=== PATIENT | female | born 1975 | race African-American/Black ===

== ENCOUNTER 2019-05-13 23:44 | Emergency (ER) | payer OTHER ==
[~2019-05-13] VITALS: Ht 175.3 cm; Wt 111.1 kg
[2019-05-13] MEDS ORDERED: fentaNYL PF VIAL 100 MCG/2 ML VIAL ONE (23:59)
[2019-05-14] MEDS ORDERED: IV NORMAL SALINE 1000ML BAG 1,000 ML IV SCH
[2019-05-14 00:08] LABS: BASO % 0 % (0-3); EOS # 0.2 x10^3/uL (0.0-0.7); EOS % 2 % (0-3); HEMATOCRIT 43.5 % (36.0-47.0); LYMPH # 3.8 x10^3/uL (1.0-4.8); LYMPH % 31 % (24-48); MEAN CORPUSCULAR HEMOGLOBIN 31 pg (25-35); MEAN CORPUSCULAR HGB CONC 35 g/dL (31-37); MEAN CORPUSCULAR VOLUME 90 fL (79-100); MONO # 0.7 x10^3/uL (0.0-1.1); MONO % 6 % (0-9); NEUT # 7.4 x10^3/uL (1.8-7.7); NEUT % 61 % (31-73); PLATELET COUNT 422 x10^3/uL (140-400); RED BLOOD COUNT 4.83 x10^6/uL (3.50-5.40); RED CELL DISTRIBUTION WIDTH 13.3 % (11.5-14.5); WHITE BLOOD COUNT 12.2 x10^3/uL (4.0-11.0)
[2019-05-14] MEDS ORDERED: ADENOSINE 6 MG/2 ML VIAL. IV ONE ×2 (00:15→02:00)
--- NOTE | 2019-05-14 00:23 | PHYS DOC ---
Past Medical History Past Medical History: Diabetes-Type II Adult General Chief Complaint Chief Complaint: RAPID HEART RATE HPI HPI Patient is a 43 year old female who presents with complaining of palpitation and chest tightness. 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 Patient denies recent dehydration, focal neuro deficit, nausea and vomiting, . Review of Systems Review of Systems Constitutional: Denies fever or chills [] Eyes: Denies change in visual acuity, redness, or eye pain [] HENT: Denies nasal congestion or sore throat [] Respiratory: Denies cough or shortness of breath [] Cardiovascular: No additional information not addressed in HPI [] GI: Denies abdominal pain, nausea, vomiting, bloody stools or diarrhea [] : Denies dysuria or hematuria [] Musculoskeletal: Denies back pain or joint pain [] Integument: Denies rash or skin lesions [] Neurologic: Denies headache, focal weakness or sensory changes [] Endocrine: Denies polyuria or polydipsia [] All other systems were reviewed and found to be within normal limits, except as documented in this note. Current Medications Current Medications Current Medications Medications (Trade) Dose Ordered Sig/Shila Start Time Stop Time Status Last Admin Dose Admin Adenosine (Adenocard) 12 mg 1X ONCE 05/14/19 02:00 05/14/19 02:02 DC 05/14/19 01:59 12 MG Fentanyl Citrate (Fentanyl 2ml Vial) 50 mcg 1X ONCE 05/14/19 02:00 05/14/19 02:01 DC 05/14/19 01:59 50 MCG Sodium Chloride 1,000 ml @ 100 mls/hr Q10H 05/14/19 00:00 05/14/19 09:59 05/14/19 00:27 100 MLS/HR Allergies Allergies Allergies Coded Allergies Type Severity Reaction Last Updated Verified Sulfa (Sulfonamide Antibiotics) Allergy Unknown 05/14/19 Yes Physical Exam Physical Exam Constitutional: Well developed, well nourished, mild distress, non-toxic bethanie earance. [] HENT: Normocephalic, atraumatic. Eyes: PERRLA, EOMI, conjunctiva normal, no discharge. [] Neck: Normal range of motion, no tenderness, supple, no stridor. [] Cardiovascular: Tachycardia, no murmur [] Lungs & Thorax: Bilateral breath sounds clear to auscultation [] Abdomen: Bowel sounds normal, soft, no tenderness, no masses, no pulsatile masses. [] Skin: Warm, dry, no erythema, no rash. [] Back: No tenderness, no CVA tenderness. [] Extremities: No tenderness, no cyanosis, no clubbing, ROM intact, no edema. [] Neurologic: Alert and oriented X 3, no focal deficits noted. [] Psychologic: Affect normal, judgement normal, mood normal. [] Current Patient Data Vital Signs Vital Signs Date Time Temp Pulse Resp B/P (MAP) Pulse Ox O2 Delivery O2 Flow Rate FiO2 05/14/19 01:59 24 99 Nasal Cannula 2.0 05/14/19 01:30 86 137/81 (99) 05/13/19 23:47 98.3 98.3 Lab Values Laboratory Tests Test 05/13/19 23:55 05/14/19 00:18 White Blood Count 12.2 x10^3/uL (4.0-11.0) H Red Blood Count 4.83 x10^6/uL (3.50-5.40) Hemoglobin 15.0 g/dL (12.0-15.5) Hematocrit 43.5 % (36.0-47.0) Mean Corpuscular Volume 90 fL (79-100) Mean Corpuscular Hemoglobin 31 pg (25-35) Mean Corpuscular Hemoglobin Concent 35 g/dL (31-37) Red Cell Distribution Width 13.3 % (11.5-14.5) Platelet Count 422 x10^3/uL (140-400) H Neutrophils (%) (Auto) 61 % (31-73) Lymphocytes (%) (Auto) 31 % (24-48) Monocytes (%) (Auto) 6 % (0-9) Eosinophils (%) (Auto) 2 % (0-3) Basophils (%) (Auto) 0 % (0-3) Neutrophils # (Auto) 7.4 x10^3/uL (1.8-7.7) Lymphocytes # (Auto) 3.8 x10^3/uL (1.0-4.8) Monocytes # (Auto) 0.7 x10^3/uL (0.0-1.1) Eosinophils # (Auto) 0.2 x10^3/uL (0.0-0.7) Basophils # (Auto) 0.0 x10^3/uL (0.0-0.2) Sodium Level 140 mmol/L (136-145) Potassium Level 3.6 mmol/L (3.5-5.1) Chloride Level 105 mmol/L (98-107) Carbon Dioxide Level 23 mmol/L (21-32) Anion Gap 12 (6-14) Blood Urea Nitrogen 11 mg/dL (7-20) Creatinine 0.9 mg/dL (0.6-1.0) Estimated GFR (Cockcroft-Gault) 81.9 Glucose Level 212 mg/dL (70-99) H Calcium Level 8.7 mg/dL (8.5-10.1) Troponin I Quantitative < 0.017 ng/mL (0.000-0.055) Laboratory Tests 05/13/19 23:55 Laboratory Tests 05/14/19 00:18 EKG EKG EKG interpreted by me. EKG at 2351 showed SVT with rate of 175, repolarization abnormality, no acute ST and T-wave abnormalities. Radiology/Procedures Radiology/Procedures [] Course & Med Decision Making Course & Med Decision Making Pertinent Labs and Imaging studies reviewed. 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 Patient stated she usually responded to 12 mg of adenosine. Patient treated with Adenosine 12 mg and converted to sinus rhythm at 0004. Labs was unremarkable except for blood sugar of 218 with history of diabetes mellitus. Patient was advised to follow up with her primary care physician regarding hyperglycemia and community development director. Dragon Disclaimer Dragon Disclaimer This electronic medical record was generated, in whole or in part, using a voice recognition dictation system. Departure Departure Impression: Primary Impression: SVT (supraventricular tachycardia) Additional Impression: Hyperglycemia Disposition: HOME, SELF-CARE (at 0206) Condition: IMPROVED Referrals: CAROLINA CAMACHO MD Patient Instructions: Hyperglycemia, Supraventricular Tachycardia Additional Instructions: Drink plenty of liquids Follow-up with your primary care physician in 3-5 days Return to ER if not getting better Follow-up with your community development director in 2 or 3 days Problem Qualifiers JO-ANN MELENDREZ MD May 14, 2019 00:23
[2019-05-14 00:38] LABS: CALCIUM 8.7 mg/dL (8.5-10.1); CREATININE 0.9 mg/dL (0.6-1.0); GFR 81.9; POTASSIUM 3.6 mmol/L (3.5-5.1)
[2019-05-14] MEDS ORDERED: DILT180C2 PO (01:49)
[2019-05-14 02:00] VITALS: BP 139/84
[2019-05-14] MEDS ORDERED: fentaNYL PF VIAL 100 MCG/2 ML VIAL IV ONE (02:00)
--- NOTE | 2019-05-14 08:04 | EKG ---
[facility] [address] [place] [address] Test Date: 2019-05-13 Test Time: 23:51:14 Pat Name: SHASTA CLARK Department: Room: Gender: F [employer] Manager: [id number] : 1975 Requested By: JO-ANN MELENDREZ Order Number: [id number] Reading MD: Measurements Intervals [place] Rate: 175 P: MD: QRS: 43 QRSD: 94 T: -121 QT: 276 QTc: 476 Interpretive Statements SUPRAVENTRICULAR TACHYCARDIA LVH WITH REPOLARIZATION ABNORMALITY ABNORMAL ECG RI6.01 Unconfirmed report No previous ECG available for comparison
== END 2019-05-14 02:20 | disposition home or self-care (01) ==
LOC: ER 23:44
DX: I47.1 Supraventricular tachycardia (principal); E11.65 Type 2 diabetes mellitus with hyperglycemia; Z88.2 Allergy status to sulfonamides
CPT/HCPCS: 36415; 80048; 84484; 85025; 93005; 96361; 96374; 96375; 96376; 99285; J0153; J3010; J7030